=== PATIENT | male | born 1970 | race Caucasian/White ===

== ENCOUNTER 2019-02-26 11:55 | Emergency (ER) | payer MEDICAID ==
[~2019-02-26] VITALS: Ht 182.9 cm; Wt 76.9 kg
--- NOTE | 2019-02-26 13:08 | NUR ---
Patient/Caregiver given discharge instructions and they have confirmed that they understand the instructions. Patient ambulatory with steady gait.
[2019-02-26 13:11] VITALS: BP 125/56
== END 2019-02-26 13:13 | disposition home or self-care (01) ==
LOC: ED 12:50
DX: J01.20 Acute ethmoidal sinusitis, unspecified (principal); B96.89 Other specified bacterial agents as the cause of diseases classified elsewhere
CPT/HCPCS: 99283

== ENCOUNTER 2019-04-30 08:12 | Emergency (ER) | payer MEDICAID ==
[~2019-04-30] VITALS: Ht 185.4 cm; Wt 78.1 kg
[2019-04-30 08:17] VITALS: BP 116/61
[2019-04-30] MEDS ORDERED: ACETAMINOPHEN 325 MG TABLET PO ONE (09:30)
[2019-04-30] MEDS ORDERED: CYCLOBENZAPRINE 10 MG TABLET PO ONE (09:30)
[2019-04-30] MEDS ORDERED: KETOROLAC 30 MG/1 ML IM ONE (09:30)
[2019-04-30] MEDS ORDERED: CYCLOBENZAPRINE 10 MG TABLET ONE (09:43)
[2019-04-30] MEDS ORDERED: KETOROLAC 30 MG/1 ML ONE (09:43)
[2019-04-30] MEDS ORDERED: ACETAMINOPHEN 325 MG TABLET ONE (09:43)
== END 2019-04-30 10:05 | disposition home or self-care (01) ==
LOC: ED 09:58
DX: S39.012A Strain of muscle, fascia and tendon of lower back, initial encounter (principal); F17.210 Nicotine dependence, cigarettes, uncomplicated; X58.XXXA Exposure to other specified factors, initial encounter; Y93.89 Activity, other specified; Y92.89 Other specified places as the place of occurrence of the external cause; Y99.8 Other external cause status
CPT/HCPCS: 72110; 73502; 96372; 99283; J1885